=== PATIENT | male | born 1980 | race Caucasian/White ===

== ENCOUNTER 2017-08-03 14:45 | Emergency (ER) | payer SELFPAY ==
[~2017-08-03] VITALS: Ht 175.3 cm; Wt 89.4 kg
[~2017-08-03 14:45] MED LIST: SULF1TAB24 PO
[2017-08-03 14:58] VITALS: BP 144/100
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
[2017-08-03] MEDS ORDERED: MORPHINE SULFATE 4 MG/ML DISP.SYRIN. IV ONE (17:45)
== END 2017-08-03 17:41 | disposition short-term general hospital (02) ==
LOC: ER 14:45
DX: R22.1 Localized swelling, mass and lump, neck (principal); R51 Headache; M25.512 Pain in left shoulder; M25.511 Pain in right shoulder
CPT/HCPCS: 70450; 72125; 73030; 96374; 99291; J2270

== ENCOUNTER 2017-08-13 07:38 | Emergency (ER) | payer SELFPAY ==
[~2017-08-13] VITALS: Ht 175.3 cm; Wt 88.9 kg
[2017-08-13 08:10] VITALS: BP 121/85
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
== END 2017-08-13 08:15 | disposition home or self-care (01) ==
LOC: ER 07:38
DX: M54.2 Cervicalgia (principal); F12.10 Cannabis abuse, uncomplicated
CPT/HCPCS: 99281